=== PATIENT | male | born 1960 | race Caucasian/White ===

== ENCOUNTER 2017-01-02 19:02 | Emergency (ER) | payer BC ==
[2017-01-02 19:12] VITALS: PULSE 76; TEMP 97.7; BMI 29.5
[2017-01-02] MEDS ORDERED: DIPHTH,PERTUSS(ACELL),TET 0.5 ML DISP.SYRIN IM ONE (19:43)
--- NOTE | 2017-01-02 19:49 | PDOC ---
History of Present Illness - General Chief Complaint: Laceration Stated Complaint: LACERATION Time Seen by Provider: 01/02/17 19:43 History Source: Patient Exam Limitations: No Limitations - History of Present Illness Initial Comments: 01/02/17 19:43 CHIEF COMPLAINT: Laceration to the left thumb. HISTORY OF PRESENT ILLNESS: Patient is a 56-year-old male, denies any significant medical history currently on no medications presents for evaluation of a superficial laceration to left thumb, patient states that he needs a tetanus shot. Cut finger while opening a can. No active bleeding. 01/02/17 19:46 Timing/Duration: reports: just prior to arrival Severity: Yes: mild Location: reports: hands Respiratory Risk Factors: reports: no cause identified Associated Symptoms: reports: denies symptoms Past History - Past Medical History Allergies/Adverse Reactions: Allergies Allergy/AdvReac Type Severity Reaction Status Date / Time No Known Allergies Allergy Verified 01/02/17 19:08 Home Medications: Ambulatory Orders NK [No Known Home Medication] 01/02/17 Other medical history: Pt denies - Psycho/Social/Smoking Cessation Hx Suicidal Ideation: No Smoking History: Never smoked Hx Alcohol Use: No Drug/Substance Use Hx: No Substance Use Type: None Review of Systems - Review of Systems Constitutional: No: Symptoms Reported Musculoskeletal: No: Symptoms Reported Integumentary: Yes: Other (superficial laceration to left thumb). No: Bruising Neurological: No: Symptoms reported, Paresthesia, Tingling, Tremors Hematologic/Lymphatic: No: Symptoms Reported All Other Systems: Reviewed and Negative *Physical Exam - Vital Signs Last Vital Signs Temp Pulse Resp BP Pulse Ox 97.7 F 76 19 151/106 98 01/02/17 19:08 01/02/17 19:08 01/02/17 19:08 01/02/17 19:08 01/02/17 19:08 - Physical Exam General Appearance: Yes: Appropriately Dressed. No: Apparent Distress Cardiovascular: positive: Regular Rhythm, Regular Rate Lymphatic: negative: Adenopathy Musculoskeletal: positive: Normal Inspection Extremity: positive: Normal Capillary Refill. negative: Tender, Swelling, Erythema, Inflammation Integumentary: positive: Other (2 cm superficial laceration to distal pad of the left thumb. No active bleeding.) Neurologic: positive: Alert, Normal Mood/Affect Procedures - Laceration/Wound Repair Finger Wound Length: to 2.5 cm Wound Explored: clean Wound's Depth, Shape: superficial Irrigated w/ Saline: Yes Wound Repaired With: Dermabond Medical Decision Making - Medical Decision Making 01/02/17 19:47 A/P: Patient here for evaluation of superficial laceration to left thumb came to emergency department requesting tetanus vaccination. Boostrix given Area cleansed with high pressure, normal saline, Dermabond placed with good result area is not high tension . Distal pad of the left first finger. Proper care instructions given to patient to keep area clean for at least 48 hours, do not peel off allow to fall off on its own. Follow-up as needed. *DC/Admit/Observation/Transfer Diagnosis at time of Disposition: Finger laceration Qualifiers: Encounter type: initial encounter Qualified Code(s): S61.219A - Laceration without foreign body of unspecified finger without damage to nail, initial encounter - Discharge Dispostion Disposition: HOME Condition at time of disposition: Good Admit: No - Patient Instructions Printed Discharge Instructions: DI for Laceration Repair With Dermabond Additional Instructions: Keep area clean and dry for 48 hours Do Not wet the glue Your tetanus is now up-to-date
[2017-01-02 20:05] VITALS: BP 131/91
== END 2017-01-02 20:00 | disposition home or self-care (01) ==
LOC: JERFT 19:02
PROC: 3E0234Z Introduction of Serum, Toxoid and Vaccine into Muscle, Percutaneous Approach (ICD-10-PCS; principal; 2017-01-02)
PROC: 0HQGXZZ Repair Left Hand Skin, External Approach (ICD-10-PCS; 2017-01-02)
DX: S61.012A Laceration without foreign body of left thumb without damage to nail, initial encounter (principal); W26.8XXA Contact with other sharp object(s), not elsewhere classified, initial encounter; Y93.89 Activity, other specified; Y92.018 Other place in single-family (private) house as the place of occurrence of the external cause
CPT/HCPCS: 90715; 99281-25